=== PATIENT | female | born 1965 | race Caucasian/White ===

== ENCOUNTER → 2016-03-14 | Outpatient (REF) | payer OTHER ==
[2016-03-14 16:02] LABS: ALBUMIN/GLOBULIN RATIO 1.21 (1.00-1.93); ALKALINE PHOSPHATASE 73 U/L (45-117); ALT/SGPT 25 U/L (12-78); ANION GAP 7 MEQ/L (8-16); AST/SGOT 12 U/L (15-37); BILIRUBIN,TOTAL 0.5 MG/DL (0.2-1.0); BLOOD UREA NITROGEN 16 MG/DL (7-18); CARBON DIOXIDE LEVEL 28 MEQ/L (21-32); CHLORIDE LEVEL 108 MEQ/L (98-107); CHOLESTEROL LEVEL 247 MG/DL (<200); CREATININE FOR GFR 0.67 MG/DL (0.55-1.02); GLOMERULAR FILTRATION RATE > 60.0 (>58); GLUCOSE, FASTING 79 MG/DL (70-105); POTASSIUM SERUM 4.2 MEQ/L (3.5-5.1); SODIUM LEVEL 143 MEQ/L (136-145); TOTAL PROTEIN 7.3 GM/DL (6.4-8.2); TRIGLYCERIDES LEVEL 85 MG/DL (<150)
[2016-03-14 16:06] LABS: MEAN CORPUSCULAR VOLUME 81.8 fl (80.0-96.0); RED CELL DISTRIBUTION WIDTH 15.1 % (11.5-14.5); WHITE BLOOD COUNT 5.4 K/mm3 (4.0-10.0)
== END ==
LOC: M SFHCLACO 08:11
PROVIDERS: ATTEND Physician Assistant
DX: E55.9 Vitamin D deficiency, unspecified (principal); E78.2 Mixed hyperlipidemia; E83.51 Hypocalcemia

== ENCOUNTER → 2016-11-06 | Outpatient (CLI) | payer BC ==
--- NOTE | 2016-11-06 10:49 | REPMRS ---
Patient History The patient states she had a clinical breast exam in 10/2016. Family history of ovarian cancer in mother at age 50 or over, breast cancer in maternal aunt at age 54, and breast cancer in maternal grandmother at age 53. Benign stereotactic core biopsy of the left breast, October 07, 2007. Took hormonal contraceptives for 8 years. Digital Woman Screen Mammo: November 06, 2016 - Exam #: [id number] Bilateral CC and MLO view(s) were taken. Technologist: Reyna Lezama, Technologist Prior study comparison: October 30, 2015, digital woman screen mammo performed at [facility]. October 27, 2014, digital woman screen mammo performed at [facility]. August 24, 2013, bilateral bilat screen digital mammo, performed at [facility] ([facility]). FINDINGS: The breast tissue is heterogeneously dense. This may lower the sensitivity of mammography. There is a needle biopsy marker clip in the left breast. There is a moderate amount of heterogeneously dense fibroglandular tissue which is fairly symmetric. There is no interval development of dominant mass, architectural distortion, or clustered microcalcification typical of malignancy. There has been no change in the appearance of the mammogram from the prior studies. ASSESSMENT: BI-RADS/ACR category 1 mammogram. Negative. Recommendation Routine screening mammogram of both breasts in 1 year (for women over age 40). This mammogram was interpreted with the aid of an FDA-approved computer-aided dectection system. Electronically Signed By: Kwadwo Rose MD 11/06/16 [id number]
== END ==
LOC: M WHC 09:54
PROVIDERS: ATTEND Obstetrics & Gynecology
DX: Z12.31 Encounter for screening mammogram for malignant neoplasm of breast (principal)

== ENCOUNTER → 2017-07-22 | Outpatient (REF) | payer OTHER ==
[2017-07-22 14:53] LABS: HEMOGLOBIN 13.4 g/dl (12.0-15.5); MEAN CORPUSCULAR HGB CONC 33.5 g/dl (32.0-36.5); MEAN CORPUSCULAR VOLUME 89.7 fl (80.0-96.0); PLATELET COUNT, AUTOMATED 246 10^3/uL (150-450); RED BLOOD COUNT 4.46 10^6/uL (4.00-5.40); RED CELL DISTRIBUTION WIDTH 11.9 % (11.5-14.5); WHITE BLOOD COUNT 5.1 10^3/uL (4.0-10.0)
[2017-07-22 15:14] LABS: ALBUMIN 3.9 GM/DL (3.2-5.2); ALBUMIN/GLOBULIN RATIO 1.26 (1.00-1.93); ALKALINE PHOSPHATASE 76 U/L (45-117); ALT/SGPT 25 U/L (12-78); ANION GAP 7 MEQ/L (8-16); AST/SGOT 18 U/L (7-37); BILIRUBIN,TOTAL 0.5 MG/DL (0.2-1.0); BLOOD UREA NITROGEN 12 MG/DL (7-18); CALCIUM LEVEL 8.5 MG/DL (8.5-10.1); CARBON DIOXIDE LEVEL 27 MEQ/L (21-32); CHLORIDE LEVEL 109 MEQ/L (98-107); CHOLESTEROL LEVEL 213 MG/DL (<200); CHOLESTEROL RISK RATIO 3.086 (<5); CREATININE FOR GFR 0.62 MG/DL (0.55-1.30); GLOMERULAR FILTRATION RATE > 60.0 (>51); GLUCOSE, FASTING 78 MG/DL (70-100); HDL CHOLESTEROL 69 MG/DL (>40); LDL CHOLESTEROL 127.4 MG/DL (<100); NON-HDL-C 144 MG/DL; POTASSIUM SERUM 4.2 MEQ/L (3.5-5.1); SODIUM LEVEL 143 MEQ/L (136-145); TRIGLYCERIDES LEVEL 83 MG/DL (<150)
[2017-07-22 15:19] LABS: TOTAL 25(OH) VITAMIN D 24.6 NG/ML (30.0-100.0)
== END ==
LOC: M SFHCLACO 08:44
DX: E55.9 Vitamin D deficiency, unspecified (principal); E78.2 Mixed hyperlipidemia; K21.9 Gastro-esophageal reflux disease without esophagitis; E83.51 Hypocalcemia
CPT/HCPCS: 80053

== ENCOUNTER → 2017-12-02 | Outpatient (CLI) | payer BC | LOC: M WHC 10:58 | DX: Z12.31 Encounter for screening mammogram for malignant neoplasm of breast (principal); N60.31 Fibrosclerosis of right breast; N60.32 Fibrosclerosis of left breast | CPT/HCPCS: 77067 ==

== ENCOUNTER 2018-01-16 08:20 | Day surgery (SDC) | payer BC, OTHER ==
[2018-01-16 08:50] LABS: HEMATOCRIT 42.7 % (36.0-47.0); HEMOGLOBIN 14.3 g/dl (12.0-15.5); MEAN CORPUSCULAR HGB CONC 33.5 g/dl (32.0-36.5); MEAN CORPUSCULAR VOLUME 89.5 fl (80.0-96.0); PLATELET COUNT, AUTOMATED 268 10^3/uL (150-450); RED BLOOD COUNT 4.77 10^6/uL (4.00-5.40); RED CELL DISTRIBUTION WIDTH 11.5 % (11.5-14.5); WHITE BLOOD COUNT 6.1 10^3/uL (4.0-10.0)
[2018-01-16 09:09] LABS: ANION GAP 6 MEQ/L (8-16); BLOOD UREA NITROGEN 10 MG/DL (7-18); CALCIUM LEVEL 9.1 MG/DL (8.5-10.1); CARBON DIOXIDE LEVEL 29 MEQ/L (21-32); CHLORIDE LEVEL 106 MEQ/L (98-107); CREATININE FOR GFR 0.73 MG/DL (0.55-1.30); GLOMERULAR FILTRATION RATE > 60.0 (>51); GLUCOSE, FASTING 96 MG/DL (70-100); POTASSIUM SERUM 3.9 MEQ/L (3.5-5.1); SODIUM LEVEL 141 MEQ/L (136-145)
[2018-01-16] MEDS ORDERED: dexameTHASONE 4 MG/ML 1ML VIAL (J1100) As Ordered (09:11)
[2018-01-16] MEDS ORDERED: GLYCOPYRROLATE INJ 0.2 MG/ML 2 ML VIAL As Ordered (09:11)
[2018-01-16] MEDS ORDERED: LIDOCAINE PRES-FREE 2% 10ML AMP As Ordered (09:11)
[2018-01-16] MEDS ORDERED: NEOSTIGMINE 10 MG/10 ML VIAL (J2710) As Ordered (09:11)
[2018-01-16] MEDS ORDERED: fentaNYL 100 MCG/2 ML INJECTION (J3010) As Ordered (09:11)
[2018-01-16] MEDS ORDERED: MIDAZOLAM INJ 2 MG/2 ML VIAL (J2250) As Ordered (09:11)
[2018-01-16] MEDS ORDERED: KETOROLAC 60 MG/2 ML VIAL (J1885) As Ordered (09:11)
[2018-01-16] MEDS ORDERED: LIDOCAINE 2% JELLY 30 ML As Ordered (09:11)
[2018-01-16] MEDS ORDERED: ONDANSETRON 4MG/2ML VIAL (J2405) As Ordered (09:11)
[2018-01-16] MEDS ORDERED: PROPOFOL 200 MG/20 ML VIAL As Ordered (09:11)
[2018-01-16] MEDS ORDERED: ROCURONIUM BROMIDE 50 MG/5 ML VIAL As Ordered ×3 (09:11→12:39)
[2018-01-16] MEDS: LR 1,000 ML IV ×3 (09:25→15:30)
[2018-01-16 09:32] LABS: CONTROL LINE UCG INT CTR LINE PRESENT; URINE PREG TEST NEGATIVE (NEGATIVE)
[2018-01-16] MEDS ORDERED: PHENYLephrine HCL 500 MCG/5 ML (100MCG/ML) SYRINGE (J2370) As Ordered (10:46)
[2018-01-16] MEDS: ACETAMINOPHEN 650 MG SUPP As Ordered (10:50)
[2018-01-16] MEDS: ACETAMINOPHEN 650 MG SUPP PR (10:51)
[2018-01-16] MEDS ORDERED: HYDROmorphone HCL 2 MG/ML 1ML VIAL (J1170) As Ordered (11:07)
[2018-01-16] MEDS ORDERED: IBUPROFEN 800 MG TAB PO (12:00)
[2018-01-16] MEDS: SIMETHICONE 80 MG CHEW TAB PO ×2 (12:00→19:23)
[2018-01-16] MEDS: ERTAPENEM 1 GM INJ (INVanz) (J1335) As Ordered (12:30)
[2018-01-16] MEDS: FLUORESCEIN 10% (100MG/ML) 5 ML VIAL As Ordered ×2 (12:58→13:17)
[2018-01-16] MEDS: VASOPRESSIN INJ 20 UNITS/ML VIAL As Ordered (13:18)
[2018-01-16] MEDS: BUPIVACAINE/EPIN 0.25% 30 ML VIAL As Ordered (13:30)
[2018-01-16] MEDS ORDERED: HYDROMORPHONE HCL 0.5 MG/ 0.5 ML SYRINGE (J1170 PER 1) IV (14:15)
[2018-01-16] MEDS ORDERED: fentaNYL 100 MCG/2 ML INJECTION (J3010) IV (14:15)
[2018-01-16] MEDS ORDERED: PERCOCET 5MG/325MG TAB PO (14:15)
[2018-01-16] MEDS: ONDANSETRON 4MG/2ML VIAL (J2405) IV (14:23)
[2018-01-16] MEDS: IBUPROFEN 800 MG TAB PO ×2 (16:02→22:09)
[2018-01-16] MEDS: PERCOCET 5MG/325MG TAB PO (20:36)
[2018-01-17] MEDS: SIMETHICONE 80 MG CHEW TAB PO ×4 (00:56→17:49)
[2018-01-17] MEDS: IBUPROFEN 800 MG TAB PO ×3 (06:22→17:49)
[2018-01-17 08:35] LABS: BASO % 0.2 % (0.0-1.0); EOS % 0.1 % (0.0-3.0); HEMATOCRIT 34.5 % (36.0-47.0); IMMATURE GRANULOCYTE % 0.4 % (0-3.0); LYMPH # 1.1 10^3/uL (1.5-4.5); LYMPH % 9.8 % (24.0-44.0); MEAN CORPUSCULAR HEMOGLOBIN 30.1 pg (27.0-33.0); MEAN CORPUSCULAR HGB CONC 33.6 g/dl (32.0-36.5); MEAN CORPUSCULAR VOLUME 89.4 fl (80.0-96.0); MONO # 0.6 10^3/uL (0.0-0.8); MONO % 5.3 % (0.0-5.0); NEUTROPHILS # 9.4 10^3/uL (1.8-7.7); NEUTROPHILS % 84.2 % (36.0-66.0); PLATELET COUNT, AUTOMATED 217 10^3/uL (150-450); RED BLOOD COUNT 3.86 10^6/uL (4.00-5.40); RED CELL DISTRIBUTION WIDTH 11.5 % (11.5-14.5); WHITE BLOOD COUNT 11.2 10^3/uL (4.0-10.0)
[2018-01-17 08:39] LABS: HEMOGLOBIN 11.6 g/dl (12.0-15.5)
[2018-01-17 08:55] LABS: BLOOD UREA NITROGEN 8 MG/DL (7-18); CREATININE FOR GFR 0.66 MG/DL (0.55-1.30); GLOMERULAR FILTRATION RATE > 60.0 (>51); GLUCOSE, FASTING 104 MG/DL (70-100); SODIUM LEVEL 139 MEQ/L (136-145)
[2018-01-17 08:56] LABS: ANION GAP 7 MEQ/L (8-16); CALCIUM LEVEL 8.1 MG/DL (8.5-10.1); CARBON DIOXIDE LEVEL 26 MEQ/L (21-32); CHLORIDE LEVEL 106 MEQ/L (98-107); POTASSIUM SERUM 3.8 MEQ/L (3.5-5.1)
[2018-01-17] MEDS ORDERED: ERTAPENEM 1 GM INJ (INVanz) (J1335) As Ordered (12:48)
[2018-01-17] MEDS: ERTAPENEM SODIUM 1 GM in NS 50 ML IV (12:54)
[2018-01-18] MEDS: SIMETHICONE 80 MG CHEW TAB PO ×3 (00:21→11:56)
[2018-01-18] MEDS: IBUPROFEN 800 MG TAB PO ×3 (00:21→11:56)
[2018-01-18] MEDS ORDERED: ERTAPENEM 1 GM INJ (INVanz) (J1335) As Ordered (11:49)
[2018-01-18] MEDS: ERTAPENEM SODIUM 1 GM in NS 50 ML IV (11:56)
== END 2018-01-18 12:40 | disposition home or self-care (01) ==
LOC: M SDC 08:20 → M PED 14:45
DX: N81.2 Incomplete uterovaginal prolapse (principal); N88.8 Other specified noninflammatory disorders of cervix uteri; N73.6 Female pelvic peritoneal adhesions (postinfective); E28.8 Other ovarian dysfunction; K43.9 Ventral hernia without obstruction or gangrene; F41.9 Anxiety disorder, unspecified; Z88.0 Allergy status to penicillin; Z98.51 Tubal ligation status; Z87.891 Personal history of nicotine dependence
CPT/HCPCS: 58571

== ENCOUNTER → 2018-01-29 | Outpatient (REF) | payer OTHER | LOC: M LAB REF 13:17 | DX: R35.0 Frequency of micturition (principal) | CPT/HCPCS: 87086 ==

== ENCOUNTER → 2019-09-08 | Outpatient (CLI) | payer OTHER ==
[~2019-09-08] MED LIST: CITA20TA6 PO; FLON1SPR; MULT1TAB9 PO
--- NOTE | 2019-09-08 12:06 | REPMRS ---
Patient History The patient states she had a clinical breast exam in 2018.. Patient is postmenopausal. Patient had tested negative for BRCA1 and negative for BRCA2. Family history of breast cancer at age 53 in maternal grandmother, breast cancer at age 54 in maternal aunt, ovarian cancer at age 50 or over in mother. Genetically tested positive for BRCA2 in maternal aunt. Benign stereotactic core biopsy of the left breast, October 07, 2007. Took hormonal contraceptives for 8 years. 3D TOMOSYNTHESIS WAS PERFORMED. [facility] lifetime risk for breast cancer is 8.1%. VOLPARA DENSITY B . Digital Woman Screen Mammo: September 08, 2019 - Exam #: [id number] Bilateral CC and MLO view(s) were taken. Technologist: Melia Wu, Criseldaologist Prior study comparison: December 02, 2017, bilateral digital woman screen mammo performed at [facility] [place]. November 06, 2016, digital woman screen mammo performed at [facility]. FINDINGS: The breast tissue is heterogeneously dense. This may lower the sensitivity of mammography. There has been no change in the appearance of the mammogram from the prior studies. There is a moderate amount of residual fibroglandular tissue which is fairly symmetric. There is no interval development of dominant mass, areas of architectural distortion, or clustered microcalcification typical of malignancy. Assessment: BI-RADS/ACR category 1 mammogram. Negative Mammogram. Recommendation Routine screening mammogram in 1 year (for women over age 40). This mammogram was interpreted with the aid of an FDA-approved computer-aided dectection system. Electronically Signed By: Kristopher Jackson MD 09/08/19 [id number]
--- NOTE | 2019-09-15 13:59 | DEXA ---
AP SPINE L1 - L4 1.373 1.4 2.0 LT FEMUR TOTAL 1.133 1.0 1.5 LT NECK 1.066 0.2 1.1 RT FEMUR TOTAL 1.124 0.9 1.5 RT NECK 1.016 -0.2 0.7 TOTAL BODY TOTAL OTHER COMMENTS: Normal bone densitometry of the spine and hips. FOLLOW-UP: Recommendation for the next bone density exam: 5 years. AKIN
== END ==
LOC: M WHC 10:24
PROVIDERS: ATTEND Obstetrics & Gynecology
DX: Z12.31 Encounter for screening mammogram for malignant neoplasm of breast (principal); Z13.820 Encounter for screening for osteoporosis

== ENCOUNTER → 2021-02-01 | Outpatient (CLI) | payer OTHER ==
--- NOTE | 2021-02-01 14:15 | REPMRS ---
Patient History The patient states she had a clinical breast exam in 11/2020. Patient had tested negative for BRCA1 and negative for BRCA2. Family history of breast cancer at age 53 in maternal grandmother, breast cancer at age 54 in maternal aunt, ovarian cancer at age 50 or over in mother. Benign stereotactic core biopsy of the left breast, October 07, 2007. Took hormonal contraceptives for 8 years. Tomosynthesis is performed. Volpara breast density is b. [facility] lifetime risk of breast cancer 8.0%. Patient states no breast complaints today. Patient has signed MRS History Sheet. Moderna vaccine 06/02/20, 07/04/20. Digital Woman Screen Mammo: February 01, 2021 - Exam #: [id number] Bilateral CC and MLO view(s) were taken. Technologist: Reyna Lezama, Technologist Prior study comparison: September 08, 2019, bilateral digital woman screen mammo performed at [facility]. December 02, 2017, bilateral digital woman screen mammo performed at [facility]. FINDINGS: The breast tissue is heterogeneously dense. This may lower the sensitivity of mammography. There has been no change in the appearance of the mammogram from the prior studies. There is a moderate amount of residual fibroglandular tissue which is fairly symmetric. There is no interval development of dominant mass, areas of architectural distortion, or clustered microcalcification typical of malignancy. Assessment: BI-RADS/ACR category 1 mammogram. Negative Mammogram. Recommendation Routine screening mammogram in 1 year (for women over age 40). This mammogram was interpreted with the aid of an FDA-approved computer-aided dectection system. Electronically Signed By: Kristopher Jackson MD 02/01/21 [id number]
== END ==
LOC: M WHC 13:12
PROVIDERS: ATTEND Obstetrics & Gynecology
DX: Z12.31 Encounter for screening mammogram for malignant neoplasm of breast (principal)

== ENCOUNTER → 2022-03-08 | Outpatient (CLI) | payer OTHER | LOC: M WHC 10:38 | PROVIDERS: ATTEND Obstetrics & Gynecology | DX: Z12.31 Encounter for screening mammogram for malignant neoplasm of breast (principal); Z13.820 Encounter for screening for osteoporosis ==

== ENCOUNTER → 2023-03-28 | Outpatient (CLI) | payer OTHER | LOC: M WHC 13:54 | PROVIDERS: ATTEND Obstetrics & Gynecology | DX: Z12.31 Encounter for screening mammogram for malignant neoplasm of breast (principal) ==

== ENCOUNTER → 2023-11-14 | Outpatient (CLI) | payer OTHER | LOC: M ADAMS 13:06 | PROVIDERS: ATTEND Physician Assistant Medical | DX: M25.561 Pain in right knee (principal); M25.562 Pain in left knee ==

== ENCOUNTER → 2024-04-26 | Outpatient (CLI) | payer OTHER | LOC: M WHC 11:14 | PROVIDERS: ATTEND Obstetrics & Gynecology | DX: Z12.31 Encounter for screening mammogram for malignant neoplasm of breast (principal); Z13.820 Encounter for screening for osteoporosis; R92.333 Mammographic heterogeneous density, bilateral breasts ==